=== PATIENT | male | born 1955 | race Caucasian/White ===

== ENCOUNTER 2021-07-01 16:10 | Emergency (ER) | payer MEDICARE, BC ==
[2021-07-01 16:20] VITALS: TEMP 97.7
--- NOTE | 2021-07-01 17:15 | CT ---
EXAMINATION TYPE: CT lumbar spine wo con DATE OF EXAM: 07/01/2021 COMPARISON: None HISTORY: Right leg weakness and numbness. CT DLP: 1478.6 mGycm Automated exposure control for dose reduction was used. Images obtained from the level of T12-S3 vertebra without contrast. Lumbar vertebrae are normal alignment. Disc spaces are fairly normal. Posterior elements are intact. Facet joints are intact. There is mild spurring of the endplates. There is no compression fracture. S acroiliac joints are intact. There is no evidence of spinal stenosis. No evidence of any significant lumbar disc herniation. IMPRESSION: Minor degenerative spurring in the lumbar spine. No fracture. No spinal stenosis.
--- NOTE | 2021-07-01 17:44 | ED ---
Extremity Problem HPI - General Chief complaint: Extremity Problem,Nontraumatic Stated complaint: R leg numbness Time Seen by Provider: 07/01/21 16:27 Source: patient, RN notes reviewed Mode of arrival: ambulatory Limitations: no limitations - History of Present Illness Initial comments: This a 66-year-old male presents emergency Department with chief complaint of right leg numb sensation. Patient states that started last night states that he is sitting down to get up felt there was just numb feeling. Patient states he gets morning noticed it felt that was difficult to walk on it. Patient states he has no associated weakness he states that it's numb feeling from his knee down. He has full range of motion no history of DVT denies any chest pain shortness breath no headache no trauma no fevers or chills no discoloration. Patient denies any bowel bladder incontinence or retention. - Related Data Home Medications Medication Instructions Recorded Confirmed Indocin (Unknown Dose) 1 tab PO DIRECTED PRN 09/11/14 09/11/14 Loratadine-Pseudoeph 10-240 mg 1 each PO DAILY 09/11/14 09/17/14 [Claritin-D 24 Hr] Previous Rx's Medication Instructions Recorded HYDROcodone/APAP 7.5-325MG [[place] 1 each PO Q4H PRN #60 tab 09/17/14 7.5] predniSONE 50 mg PO DAILY #4 tab 07/01/21 Allergies Allergy/AdvReac Type Severity Reaction Status Date / Time No Known Allergies Allergy Verified 07/01/21 18:10 Review of Systems ROS Statement: Those systems with pertinent positive or pertinent negative responses have been documented in the HPI. ROS Other: All systems not noted in ROS Statement are negative. Past Medical History Past Medical History: Sleep Apnea/CPAP/BIPAP Additional Past Medical History / Comment(s): GOUT, SLEEP APNEA-NO MACHINE, UMBILICAL HERNIA, ENVIRONMENTAL ALLERGIES. History of Any Multi-Drug Resistant Organisms: None Reported Past Surgical History: Appendectomy Additional Past Surgical History / Comment(s): CYST REMOVED ON TORSO, NASAL SURGERY, COLONOSCOPY. Past Anesthesia/Blood Transfusion Reactions: No Reported Reaction Past Psychological History: No Psychological Hx Reported Smoking Status: Never smoker Past Alcohol Use History: Occasional Past Drug Use History: Marijuana - Past Family History Father Family Medical History: Cancer Additional Family Medical History / Comment(s): PROSTATE CANCER. General Exam Limitations: no limitations General appearance: alert, in no apparent distress Head exam: Present: atraumatic, normocephalic, normal inspection Respiratory exam: Present: normal lung sounds bilaterally. Absent: respiratory distress, wheezes, rales, rhonchi, stridor Cardiovascular Exam: Present: regular rate, normal rhythm, normal heart sounds. Absent: systolic murmur, diastolic murmur, rubs, gallop, clicks Extremities exam: Present: normal inspection, full ROM, normal capillary refill, other (Lower extremity pulses equal bilaterally, cap refill less than 2 seconds there is equal and equal warmth patient does have full strength of lower extremity). Absent: tenderness, pedal edema, joint swelling, calf tenderness Back exam: Present: full ROM. Absent: tenderness, paraspinal tenderness, vertebral tenderness Neurological exam: Present: alert, oriented X3, CN II-XII intact, reflexes normal. Absent: motor sensory deficit Course Vital Signs 07/01/21 07/01/21 16:17 17:41 Temperature 97.7 F Pulse Rate 97 80 Respiratory 18 16 Rate Blood Pressure 156/86 190/102 O2 Sat by Pulse 98 97 Oximetry Medical Decision Making - Medical Decision Making CT of lumbar spine shows some mild degenerative changes, spurring noted Ultram is negative for acute DVT patient has good vascular flow patient has no associated weakness patient will be discharged and followed up with orthopedics for EMG. Disposition Clinical Impression: Right leg paresthesias, Lumbar radiculopathy Disposition: HOME SELF-CARE Condition: Stable Instructions (If sedation given, give patient instructions): Lumbar Radiculopathy (ED), Paresthesia (ED) Additional Instructions: Please return to the Emergency Department if symptoms worsen or any other concerns. Prescriptions: predniSONE 50 mg PO DAILY #4 tab Is patient prescribed a controlled substance at d/c from ED?: No Referrals: Vish Aguilar MD [STAFF PHYSICIAN] - 1-2 days Jose Angel Elliott MD [STAFF PHYSICIAN] - 1-2 days Time of Disposition: 18:10
--- NOTE | 2021-07-01 17:53 | US ---
EXAMINATION TYPE: US venous doppler duplex LE RT DATE OF EXAM: 07/01/2021 5:24 PM COMPARISON: NONE CLINICAL HISTORY: pain. numbness in right leg x 1 day, no h/o dvt SIDE PERFORMED: Right TECHNIQUE: The lower extremity deep venous system is examined utilizing real time linear array sonog devi with graded compression, doppler sonography and color-flow sonography. VESSELS IMAGED: Common Femoral Vein Deep Femoral Vein Greater Saphenous Vein * Femoral Vein Popliteal Vein Small Saphenous Vein * Proximal Calf Veins (* superficial vessels) Right Leg: Negative for DVT IMPRESSION: No evidence of deep vein thrombosis in the right leg.
[2021-07-01 18:16] VITALS: BP 140/93; PULSE 87; RESP 18
== END 2021-07-01 18:15 | disposition home or self-care (01) ==
LOC: EC 16:10
DX: M54.16 Radiculopathy, lumbar region (principal); R20.2 Paresthesia of skin; F12.90 Cannabis use, unspecified, uncomplicated
CPT/HCPCS: 72131; 99284

== ENCOUNTER 2021-08-14 07:50 | Day surgery (SDC) | payer BC, MEDICARE ==
[2021-08-12 14:59] VITALS: BMI 32.3
[2021-08-14 08:19] VITALS: TEMP 97
[2021-08-14] MEDS ORDERED: LACTATED RINGERS 1,000 ML IV ONE (08:27)
[2021-08-14] MEDS ORDERED: INSULIN ASPART (NovoLOG) 100 UNIT/ML VIAL SQ ONE (08:28)
[2021-08-14] MEDS ORDERED: LIDOCAINE 2% INJ 20 MG/ML (2 ML VIAL) ONE (08:46)
[2021-08-14] MEDS ORDERED: PROPOFOL 10 MG/ML 20 ML VIAL IV ONE (08:46)
--- NOTE | 2021-08-14 08:50 | P.GSHP ---
History of Present Illness H&P Date: 08/14/21 Chief Complaint: Screening colonoscopy This is a 66-year-old male who presents today for screening colonoscopy. Patient denies any significant GI complaints. Past Medical History Past Medical History: Diabetes Mellitus, Sleep Apnea/CPAP/BIPAP Additional Past Medical History / Comment(s): GOUT, SLEEP APNEA-NO MACHINE, ENVIRONMENTAL ALLERGIES. History of Any Multi-Drug Resistant Organisms: None Reported Past Surgical History: Appendectomy Additional Past Surgical History / Comment(s): CYST REMOVED ON ABDOMEN, NASAL SURGERY, COLONOSCOPY. Past Anesthesia/Blood Transfusion Reactions: No Reported Reaction Smoking Status: Never smoker - Past Family History Brother(s) Family Medical History: Cancer Additional Family Medical History / Comment(s): prostate Father Family Medical History: Cancer Additional Family Medical History / Comment(s): PROSTATE CANCER. Medications and Allergies Home Medications Medication Instructions Recorded Confirmed Type Ascorbic Acid [Vitamin C] 500 mg PO DAILY 07/01/21 08/14/21 History Atorvastatin [Lipitor] 20 mg PO HS 07/01/21 08/14/21 History Cholecalciferol [Vitamin D3 (25 25 mcg PO DAILY 07/01/21 08/14/21 History Mcg = 1000 Iu)] Loratadine [Claritin] 10 mg PO DAILY 07/01/21 08/14/21 History Minocycline HCl [Minocin] 100 mg PO DAILY 07/01/21 08/14/21 History metFORMIN HCL 500 mg PO BID-W/MEALS 07/01/21 08/14/21 History Allergies Allergy/AdvReac Type Severity Reaction Status Date / Time No Known Allergies Allergy Verified 08/14/21 08:11 Surgical - Exam Vital Signs Temp Pulse Resp BP Pulse Ox 97.0 F L 90 16 159/99 96 08/14/21 08:18 08/14/21 08:18 08/14/21 08:18 08/14/21 08:18 08/14/21 08:18 - General well developed, well nourished, no distress - Eyes PERRL - ENT normal pinna - Neck no masses - Respiratory normal expansion - Cardiovascular Rhythm: regular - Abdomen Abdomen: soft, non tender Assessment and Plan Assessment: We'll perform screening colonoscopy.
[2021-08-14 08:51] LABS: Glucose,Whole Blood 311 mg/dL (75-99)
--- NOTE | 2021-08-14 09:06 | P.OP ---
Date of Procedure: 08/14/21 Preoperative Diagnosis: Screening colonoscopy Postoperative Diagnosis: Sigmoid colon polyp Mild diverticulosis Procedure(s) Performed: colonoscopy Anesthesia: MAC Surgeon: Florentino Cedillo Pathology: other (Sigmoid colon polyp) Condition: stable Disposition: PACU Description of Procedure: The patient's placed on the endoscopy table in the lateral position. He received IV sedation. Digital rectal exam was performed which revealed no abnormalities. The flexible colonoscope was then placed patient anus and passed throughout the entire colon. The ileocecal valve was visualized. The cecum, ascending and transverse colon appeared normal. In the descending and; was a few scattered diverticuli. In the sigmoid colon there was a polyp seen. This removed with the snare. Scope was brought back the rectum this appeared normal. Scope withdrawn for patient.
[2021-08-14 09:15] LABS: Glucose,Whole Blood 323 mg/dL (75-99)
[2021-08-14 09:37] VITALS: RESP 17
[2021-08-14] MEDS ORDERED: LACTATED RINGERS 1,000 ML IV SCH (09:43)
[2021-08-14] MEDS ORDERED: LABETALOL SYRINGE 5 MG/ML IVP ONE (09:45)
[2021-08-14] MEDS ORDERED: hydrALAZINE HCL 20 MG/ML 1 ML VIAL ONE (10:50)
[2021-08-14] MEDS ORDERED: hydrALAZINE HCL 20 MG/ML 1 ML VIAL IV ONE (10:51)
[2021-08-14 10:54] VITALS: BP 191/119; PULSE 81
[2021-08-14 10:56] LABS: Glucose,Whole Blood 276 mg/dL (75-99)
== END 2021-08-14 11:30 | disposition home or self-care (01) ==
LOC: ORWHC2ENDO 07:50
PROVIDERS: ATTEND Surgery
DX: Z12.11 Encounter for screening for malignant neoplasm of colon (principal); K57.90 Diverticulosis of intestine, part unspecified, without perforation or abscess without bleeding; D12.5 Benign neoplasm of sigmoid colon; E11.9 Type 2 diabetes mellitus without complications; G47.30 Sleep apnea, unspecified; Z79.84 Long term (current) use of oral hypoglycemic drugs
CPT/HCPCS: 45385; 88305; J0360; J2704; J2001

== ENCOUNTER 2022-09-01 02:51 | Inpatient (IN) | payer MEDICARE ==
[2022-09-01] MEDS ORDERED: HEPARIN SODIUM 1,000 UN/ML (10ML VL) IV ONE (02:56)
[2022-09-01] MEDS ORDERED: NITROGLYCERIN SL TABS 0.4 MG TAB SUBLINGUAL PRN ×2 (02:56→04:20)
[2022-09-01 02:58] LABS: Glucose,Whole Blood 183 mg/dL (70-110)
[2022-09-01] MEDS ORDERED: fentaNYL (PF) 50 MCG/ML 2 ML AMP ONE (03:13)
[2022-09-01] MEDS ORDERED: HEPARIN SODIUM 1,000 UN/ML (10ML VL) ONE (03:13)
[2022-09-01] MEDS ORDERED: VERAPAMIL 2.5 MG/ML 2 ML AMP ONE (03:13)
[2022-09-01] MEDS ORDERED: NALOXONE 0.4 MG/ML 1 ML VIAL IV PRN (03:20)
[2022-09-01] MEDS ORDERED: LIDOCAINE 1% INJ 10MG/ML (5 ML VIAL-PF) SQ ONE (03:25)
[2022-09-01] MEDS ORDERED: VERAPAMIL SYRINGE (5 MG/10 ML) INTRAARTER ONE (03:26)
[2022-09-01] MEDS ORDERED: fentaNYL (PF) 50 MCG/ML 2 ML AMP IVP ONE (03:28)
[2022-09-01 03:29] LABS: ALT 34 U/L (4-49); AST 26 U/L (17-59); African American GFR (CKD) >90 (>60 ml/min/1.73 sqM); Albumin 4.4 g/dL (3.5-5.0); Alkaline Phosphatase 123 U/L (38-126); Anion Gap 16 mmol/L; Blood Urea Nitrogen 11 mg/dL (9-20); Calcium 9.3 mg/dL (8.4-10.2); Carbon Dioxide 20 mmol/L (22-30); Chloride 106 mmol/L (98-107); Glucose 194 mg/dL (74-99); Non-African American GFR(CKD) >90 (>60 ml/min/1.73 sqM); Potassium 3.7 mmol/L (3.5-5.1); Sodium 142 mmol/L (137-145); Total Bilirubin 0.5 mg/dL (0.2-1.3); Total Protein 7.8 g/dL (6.3-8.2)
[2022-09-01] MEDS ORDERED: SODIUM CHLORIDE 0.9% 1,000 ML IV ONE (03:33)
--- NOTE | 2022-09-01 03:36 | ED ---
General Adult HPI - General Chief complaint: Chest Pain Stated complaint: Stemi Time Seen by Provider: 09/01/22 02:56 Source: patient, EMS Mode of arrival: EMS Limitations: no limitations - History of Present Illness Initial comments: This is a 67-year-old male with a past medical history including hypertension presents emergency department via EMS for chest pain that began 20 minutes prior to arrival. The patient stated that this woke him up out of sleep and was a crushing sensation in the center of his chest. The patient was given 4 aspirin by EMS and stated that the pain did improve. EMS did provide any during transport but did show a STEMI. A STEMI was contacted prior to arrival and on arrival, the patient stated his pain was improved however did state that he was treating alcohol this evening. The patient denied any other acute pain or complaints at this time. The patient did state that he had a small episode of chest pain earlier in the day but had spontaneously resolved. - Related Data Home Medications Medication Instructions Recorded Confirmed Ascorbic Acid [Vitamin C] 500 mg PO DAILY 07/01/21 08/14/21 Atorvastatin [Lipitor] 20 mg PO HS 07/01/21 08/14/21 Cholecalciferol [Vitamin D3 (25 25 mcg PO DAILY 07/01/21 08/14/21 Mcg = 1000 Iu)] Loratadine [Claritin] 10 mg PO DAILY 07/01/21 08/14/21 Minocycline HCl [Minocin] 100 mg PO DAILY 07/01/21 08/14/21 metFORMIN HCL 500 mg PO BID-W/MEALS 07/01/21 08/14/21 Allergies Allergy/AdvReac Type Severity Reaction Status Date / Time No Known Allergies Allergy Verified 08/14/21 08:11 Review of Systems ROS Statement: Those systems with pertinent positive or pertinent negative responses have been documented in the HPI. ROS Other: All systems not noted in ROS Statement are negative. Past Medical History Past Medical History: Diabetes Mellitus, Sleep Apnea/CPAP/BIPAP Additional Past Medical History / Comment(s): GOUT, SLEEP APNEA-NO MACHINE, ENVIRONMENTAL ALLERGIES. History of Any Multi-Drug Resistant Organisms: None Reported Past Surgical History: Appendectomy Additional Past Surgical History / Comment(s): CYST REMOVED ON ABDOMEN, NASAL SURGERY, COLONOSCOPY. Past Anesthesia/Blood Transfusion Reactions: No Reported Reaction Past Psychological History: No Psychological Hx Reported Smoking Status: Never smoker Past Alcohol Use History: None Reported Past Drug Use History: None Reported - Past Family History Brother(s) Family Medical History: Cancer Additional Family Medical History / Comment(s): prostate Father Family Medical History: Cancer Additional Family Medical History / Comment(s): PROSTATE CANCER. General Exam Limitations: no limitations General appearance: alert, in no apparent distress Head exam: Present: atraumatic, normocephalic, normal inspection Eye exam: Present: normal appearance, PERRL Pupils: Present: normal accommodation ENT exam: Present: normal exam, normal oropharynx Neck exam: Present: normal inspection, full ROM Respiratory exam: Present: normal lung sounds bilaterally Cardiovascular Exam: Present: regular rate, normal rhythm, normal heart sounds GI/Abdominal exam: Present: soft, normal bowel sounds Extremities exam: Present: normal inspection, full ROM Back exam: Present: normal inspection, full ROM Neurological exam: Present: alert, oriented X3, CN II-XII intact Psychiatric exam: Present: normal affect, normal mood Skin exam: Present: warm, dry Course Vital Signs 09/01/22 09/01/22 09/01/22 02:52 02:56 03:02 Temperature 97.7 F Pulse Rate 109 H 79 Pulse Rate [ 82 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 This EKG showed a normal sinus rhythm with a first-degree AV block however there was significant ST segment elevations in lead V1, V2, V3, V4, V5 and V6 with additional ST segment elevations in lead 3 and aVF. While under close monitoring observation, the patient did have an episode of V. fib arrest and was shocked once with a repeat EKG obtained status post ROSC and was interpreted by myself with similar findings as the initial EKG. 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 sent in by a medical professional or institution (, PA, PATIENT SAFETY TECH, urgent care, hospital, or snf...) When possible be specific @ -No Did you speak to anyone other than the patient for history (EMS, parent, family, police, friend...)? What history was obtained from this source @ -Yes, EMS who stated that the patient was given 4 chewed aspirin and stated that his pain was improved. Did you review nursing and triage notes (agree or disagree)? Why? @ -I reviewed and agree with nursing and triage notes Were old charts reviewed (outside hosp., previous admission, EMS record, old EKG, old radiological studies, urgent care reports/EKG's, snf records)? Report findings @ -No old charts were reviewed Differential Diagnosis (chest pain, altered mental status, abdominal pain women, abdominal pain men, vaginal bleeding, weakness, fever, dyspnea, syncope, headache, dizziness, GI bleed, back pain, seizure, CVA, palpatations, mental health)? @ -STEMI, pneumothorax, pneumonia EKG interpreted by me (3pts min.). @ -As above X-rays interpreted by me (1pt min.). 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 CT interpreted by me (1pt min.). @ -None done U/S interpreted by me (1pt. min.). @ -None done What testing was considered but not performed or refused? (CT, X-rays, U/S, labs)? Why? @ -None What meds were considered but not given or refused? Why? @ -None Did you discuss the management of the patient with other professionals (professionals i.e. , PA, PATIENT SAFETY TECH, lab, RT, psych nurse, social worker assistant, district branch manager, teacher, commissioned police officer, casework specialist)? Give summary @ -Yes, Dr. Martínez was contacted per STEMI call and did present to the bedside evaluating the patient and take the patient to the cardiac Dump Truck Driver. The patient's primary care physician was being covered by Dr. Flor who was contacted regarding patient admission. Was smoking cessation discussed for >3mins.? @ -No Was critical care preformed (if so, how long)? @ -Yes, see above Were there social determinants of health that impacted care today? How? (Homelessness, low income, unemployed, alcoholism, drug addiction, transportation, low edu. Level, literacy, decrease access to med. care, fdc, rehab)? @ -No Was there de-escalation of care discussed even if they declined (Discuss DNR or withdrawal of care, Hospice)? DNR status @ -No What co-morbidities impacted this encounter? (DM, HTN, Smoking, COPD, CAD, Cancer, CVA, ARF, Chemo, Hep., AIDS, mental health diagnosis, sleep apnea, morbid obesity)? @ -Hypertension Was patient admitted / discharged? Hospital course, mention meds given and route, prescriptions, significant lab abnormalities, going to OR and other pertinent info. @ -The patient was seen and evaluated. Prior to arrival, EMS did send a EKG and I did call the code STEMI 15 minutes prior to arrival the emergency department. On arrival, the patient was stable without any acute complaints. The patient did state that his chest pain improved however repeat EKG initially on arrival showed continued significant ST segment elevations. Code STEMI workup was obtained. I did speak to Dr. Martínez who came to the bedside to evaluate the patient and agreed to take the patient to the cardiac catheterization lab. While observing the patient and working up the patient after initial arrival, the patient did have a brief episode of V. fib arrest that required a defibrillating shock 150 J. The patient immediately woke up and did not complain of any further pain or distress, asking what I just happened. The patient remained stable and was given a bolus of heparin. The patient was emergently sent to the cardiac catheterization lab for continued treatment. The patient's primary care physician agreed to set the patient for admission and supervisor locomotive PATIENT SAFETY TECH was also contacted and accepted the patient for admission. Undiagnosed new problem with uncertain prognosis? @ -No Drug Therapy requiring intensive monitoring for toxicity (Heparin, Nitro, Insulin, Cardizem)? @ -No Were any procedures done? @ -No Diagnosis/symptom? @ -STEMI Acute, or Chronic, or Acute on Chronic? @ -Acute Uncomplicated (without systemic symptoms) or Complicated (systemic symptoms)? @ -Complicated Side effects of treatment? @ -No Exacerbation, Progression, or Severe Exacerbation? @ -No Poses a threat to life or bodily function? How? (Chest pain, [place], MA, pneumonia, PE, COPD, DKA, ARF, appy, cholecystitis, CVA, Diverticulitis, Homicidal, Suicidal, threat to staff... and all critical care pts) @ -Yes, STEMI can lead to continued arrhythmia and possible . - Lab Data Lab Results 09/01/22 Range/Units 02:57 POC Glucose (mg/dL) 183 H (70-110) mg/dL POC Glu Sheep Or Calf Grader ID Lawrence Gillian Critical Care Time Critical Care Time: Yes Total Critical Care Time: 31 Disposition Clinical Impression: ST elevation myocardial infarction (STEMI) Disposition: ADMITTED IP TO THIS HOSP Condition: Serious Is patient prescribed a controlled substance at d/c from ED?: No Referrals: Jose Angel Elliott MD [Primary Care Provider] - 1-2 days Time of Disposition: 03:20 Decision to Admit Reason: Admit from EC Decision Date: 09/01/22 Decision Time: 03:20
[2022-09-01] MEDS ORDERED: TICAGRELOR 90 MG TAB ONE (03:37)
[2022-09-01] MEDS: HEPARIN SODIUM 1,000 UN/ML (10ML VL) IV ONE ×2 (03:37→04:13)
[2022-09-01] MEDS ORDERED: TICAGRELOR 90 MG TAB PO ONE (03:39)
[2022-09-01 03:40] LABS: Basophils # (A) 0.1 k/uL (0-0.2); Basophils % (A) 1 %; Eosinophils # (A) 0.2 k/uL (0-0.7); Eosinophils % (A) 2 %; HCT 47.5 % (39.0-53.0); HGB 15.4 gm/dL (13.0-17.5); Lymphocytes # (A) 4.6 k/uL (1.0-4.8); Lymphocytes % (A) 47 %; MCH 29.2 pg (25.0-35.0); MCHC 32.4 g/dL (31.0-37.0); MCV 90.2 fL (80.0-100.0); Mean Platelet Volume 8.6; Monocytes # (A) 0.4 k/uL (0-1.0); Monocytes % (A) 4 %; Neutrophils # (A) 4.3 k/uL (1.3-7.7); Neutrophils % (A) 44 %; Platelet Count 267 k/uL (150-450); RBC 5.27 m/uL (4.30-5.90); RDW 13.1 % (11.5-15.5); WBC 9.8 k/uL (3.8-10.6)
[2022-09-01] MEDS ORDERED: IOPAMIDOL-370 100ML BTL INJ ONE ×2 (03:42→04:04)
[2022-09-01 03:43] LABS: INR 0.9 (<1.2); Partial Thromboplastin Time 53.3 sec (22.0-30.0); Prothrombin Time 9.9 sec (9.0-12.0)
--- NOTE | 2022-09-01 04:05 | XR ---
EXAM: XR Chest, 1 View CLINICAL HISTORY: ITS.REASON XR Reason: chest pain TECHNIQUE: Frontal view of the chest. COMPARISON: No relevant prior studies available. FINDINGS: Lungs: Streaky perihilar and retrocardiac subsegmental opacities. Slightly hazy ill-defined central bronchovascular markings. Pleural space: Unremarkable. No pneumothorax. Heart: Unremarkable. No cardiomegaly. Mediastinum: Unremarkable. Bones/joints: Unremarkable. IMPRESSION: Subsegmental atelectasis and central pulmonary edema versus developing unusual pneumonia/bronchitis changes
[2022-09-01] MEDS ORDERED: ZOLPIDEM 5 MG TAB PO PRN (04:20)
[2022-09-01] MEDS ORDERED: RX INFO: IV CONTRAST WAS GIVEN 1 EACH MISC MISCELLANE PRN (04:20)
[2022-09-01] MEDS ORDERED: ATROPINE SULFATE 0.1 MG/ML 10ML SYRINGE IV PRN (04:20)
[2022-09-01] MEDS ORDERED: MAG HYDROX/AL HYDROX/SIMETH 30 ML CUP PO PRN (04:20)
--- NOTE | 2022-09-01 04:28 | P.CRDCN ---
History of Present Illness Consult date: 09/01/22 History of present illness: History of Present Illness: The patient is a 67-year-old male with known history of hyperlipidemia, no history of smoking who presented with an acute onset chest discomfort and presented with evidence of anterior wall myocardial infarction. The patient had mild discomfort earlier during the day that resolved but subsequently had discomfort that woke him up from sleep and presented to the ER. In the emergency room he had an episode of ventricular tachycardia requiring cardioversion. He has no prior cardiac history, he is usually active physically without any difficulties. He denies any peripheral edema, PND or orthopnea. He denies any dizziness, palpitations or syncope. Medications: Metformin 500 mg twice a day, Lipitor 20 made him daily, vitamin C Review of Systems: Respiratory: No history of asthma, bronchitis or recent cough. GI: No nausea or vomiting . No history of peptic ulcer disease. No recent GI bleed. : No hematuria or dysuria. Nervous System: No stroke or seizure. Physical Examination: 67-year-old male, alert and oriented in moderate discomfort,Blood pressure 150/90, Heart rate 80 Head: Normocephalic. Eyes: Sclerae nonicteric. Neck: Good carotid upstroke, no bruit, no jugular venous distention. Lungs: Clear to auscultation. Heart: Regular rate and rhythm, S1-S2, no S3, no rub. No murmur. Abdomen: Soft nontender, positive bowel sounds no organomegaly. Extremities: No edema, intact distal pulses. Labs: Hemoglobin 15.4, BUN 11, creatinine 0.77. Potassium 3.7. Troponin 0.113. Chest x-ray with atelectasis EKG: Normal sinus rhythm with ST elevation in the anterior leads as well as the inferior leads consistent with anterior wall myocardial infarction Impression: 1. Acute anterior wall myocardial infarction 2. History of hyperlipidemia 3. History of diabetes 4. Ventricle tachycardia on presentation Plan: 1. Proceed with emergency cardiac catheterization 2. The procedure as well as the risks and the complications were discussed with the patient who was in agreement and understanding 3. Obtain an echocardiogram with Doppler 4. Depending on his progress further recommendations will be made 5. Thank you for this consult we will follow with you. Past Medical History Past Medical History: Diabetes Mellitus, Sleep Apnea/CPAP/BIPAP Additional Past Medical History / Comment(s): GOUT, SLEEP APNEA-NO MACHINE, ENVIRONMENTAL ALLERGIES. History of Any Multi-Drug Resistant Organisms: None Reported Past Surgical History: Appendectomy Additional Past Surgical History / Comment(s): CYST REMOVED ON ABDOMEN, NASAL SURGERY, COLONOSCOPY. Past Anesthesia/Blood Transfusion Reactions: No Reported Reaction Past Psychological History: No Psychological Hx Reported Smoking Status: Never smoker Past Alcohol Use History: None Reported Past Drug Use History: None Reported - Past Family History Brother(s) Family Medical History: Cancer Additional Family Medical History / Comment(s): prostate Father Family Medical History: Cancer Additional Family Medical History / Comment(s): PROSTATE CANCER. Medications and Allergies Home Medications Medication Instructions Recorded Confirmed Type Ascorbic Acid [Vitamin C] 500 mg PO DAILY 07/01/21 08/14/21 History Atorvastatin [Lipitor] 20 mg PO HS 07/01/21 08/14/21 History Cholecalciferol [Vitamin D3 (25 25 mcg PO DAILY 07/01/21 08/14/21 History Mcg = 1000 Iu)] Loratadine [Claritin] 10 mg PO DAILY 07/01/21 08/14/21 History Minocycline HCl [Minocin] 100 mg PO DAILY 07/01/21 08/14/21 History metFORMIN HCL 500 mg PO BID-W/MEALS 07/01/21 08/14/21 History Allergies Allergy/AdvReac Type Severity Reaction Status Date / Time No Known Allergies Allergy Verified 08/14/21 08:11 Physical Exam Vitals: Vital Signs Temp Pulse Pulse Resp BP Pulse Ox 09/01/22 03:02 79 20 174/116 92 L 09/01/22 02:56 82 09/01/22 02:52 97.7 F 109 H 20 151/102 95 Intake and Output 08/31/22 08/31/22 09/01/22 14:59 22:59 06:59 Intake Total 75 Balance 75 Intake: IV 75 Other: Weight 108.862 kg Results 09/01/22 03:02 09/01/22 03:02 Cardiac Enzymes 09/01/22 09/01/22 Range/Units 03:02 03:02 AST 26 (17-59) U/L Troponin I 0.113 H* (0.000-0.034) ng/mL Coagulation 09/01/22 Range/Units 03:02 PT 9.9 (9.0-12.0) sec APTT 53.3 H (22.0-30.0) sec CBC 09/01/22 Range/Units 03:02 WBC 9.8 (3.8-10.6) k/uL RBC 5.27 (4.30-5.90) m/uL Hgb 15.4 (13.0-17.5) gm/dL Hct 47.5 (39.0-53.0) % Plt Count 267 (150-450) k/uL Comprehensive Metabolic Panel 09/01/22 Range/Units 03:02 Sodium 142 (137-145) mmol/L Potassium 3.7 (3.5-5.1) mmol/L Chloride 106 (98-107) mmol/L Carbon Dioxide 20 L (22-30) mmol/L BUN 11 (9-20) mg/dL Creatinine 0.77 (0.66-1.25) mg/dL Glucose 194 H (74-99) mg/dL Calcium 9.3 (8.4-10.2) mg/dL AST 26 (17-59) U/L ALT 34 (4-49) U/L Alkaline Phosphatase 123 (38-126) U/L Total Protein 7.8 (6.3-8.2) g/dL Albumin 4.4 (3.5-5.0) g/dL Current Medications Generic Name Dose Route Start Last Admin Trade Name Freq PRN Reason Stop Dose Admin Al Hydroxide/Mg Hydroxide 30 ml 09/01/22 04:20 Mag Hydrox/Al Hydrox/Simeth 30 Ml Cup PO Q4HR PRN Heartburn Aspirin 81 mg 09/01/22 09:00 Aspirin 81 Mg PO DAILY [facility] Atorvastatin Calcium 80 mg 09/01/22 21:00 Atorvastatin 80 Mg Tab PO HS [facility] Atropine Sulfate 0.5 mg 09/01/22 04:20 Atropine Sulfate 0.1 Mg/Ml 10ml Syringe IV ONCE PRN Symptomatic Bradycardia Sodium Chloride 1,000 ml/ IV 1,000 mls @ 108.862 mls/hr 09/01/22 04:30 Solution IV 09/01/22 08:31 .Q9H12M BEENA 1 ML/KG/HR Lisinopril 5 mg 09/01/22 09:00 Lisinopril 2.5 Mg Tab PO BID [facility] Metoprolol Tartrate 25 mg 09/01/22 09:00 Metoprolol Tartrate 25 Mg Tab PO BID [facility] Miscellaneous Information 1 each 09/01/22 04:20 Rx Info: Iv Contrast Was Given 1 Each Misc MISCELLANE 09/03/22 04:20 DAILY PRN Per Protocol Naloxone HCl 0.2 mg 09/01/22 03:20 Naloxone 0.4 Mg/Ml 1 Ml Vial IV Q2M PRN Opioid Reversal Nitroglycerin 0.4 mg 09/01/22 02:56 Nitroglycerin Sl Tabs 0.4 Mg Tab SUBLINGUAL Q5M PRN Chest Pain Nitroglycerin 0.4 mg 09/01/22 04:20 Nitroglycerin Sl Tabs 0.4 Mg Tab SUBLINGUAL Q5M PRN Chest Pain Spironolactone 25 mg 09/01/22 09:00 Spironolactone 25 Mg Tab PO DAILY [facility] Ticagrelor 90 mg 09/01/22 09:00 Ticagrelor 90 Mg Tab PO BID [facility] Protocol Zolpidem Tartrate 5 mg 09/01/22 04:20 Zolpidem 5 Mg Tab PO HS PRN Insomnia Intake and Output 08/31/22 08/31/22 09/01/22 14:59 22:59 06:59 Intake Total 75 Balance 75 Intake: IV 75 Other: Weight 108.862 kg Patient Weight 09/01/22 06:59 Weight 108.862 kg 09/01/22 03:02 09/01/22 03:02
[2022-09-01] MEDS ORDERED: SODIUM CHLORIDE 0.9% 1,000 ML in EMPTY BAG 1 BAG IV SCH (04:30)
[2022-09-01 04:31] LABS: Glucose,Whole Blood 166 mg/dL (70-110)
--- NOTE | 2022-09-01 04:35 | P.CARDCATH ---
Date of Procedure: 09/01/22 Description of Procedure: Cardiac Catheterization: The patient is a 67 year old male who presented with an acute anterior wall myocardial infarction. Recommendations were made regarding cardiac catheterization, the risks and the complications were discussed with the patient who is in full understanding and agreement. Procedure Description: Patient was brought to outside laborer in fasting semi-sedated state after receiving Fentanyl and Benadryl achieiving moderate conscious sedated state. Using Xylocaine Anesthesia and Seldinger technique, a 6-Kosovan sheath was introduced in the right radial artery . Subsequently, selective coronary angiography was performed using a 5-Kosovan 3.5 bend right Louie catheter. Attempt to cannulate the left main using a 6- Kosovan 3.75 EBU guiding catheter were unsuccessful, that catheter was exchanged to a 6-Kosovan 4.0 EBU guiding catheter. After obtaining images of the left system and performing angioplasty and stenting images of the right coronary artery were performed. Multiple views of the coronary artery including hemiaxial views were obtained. The 5-Kosovan pigtail catheter was used to cross the aortic valve and LVEDP was calculated. PCI: Using the 4.0 EBU guiding catheter and after cannulating the left main a 0.014 BMW J-wire was advanced and positioned in the distal LAD, subsequently a second 0.014 BMW J wire was positioned in the diagonal branch. A 2.5 x 12 mm Treck was advanced into inflation at 8 kunal were done. Subsequently a 3.0 x 28 mm Xience ricardo point stent was advanced and deployed at 16 kunal. After removing the balloon a [employer] intravascular ultrasound catheter was advanced and imaging was performed. After removing the catheter 4.0 x 15 mm NC Treck balloon was advanced and one inflation in the proximal segment at 10 kunal was done. Following that the wire was withdrawn back and again a catheter, images were obtained and revealed stable successful stenting. Following that, catheter and sheath were removed. Hemostasis was obtained with deployment of TR band . There was no immediate complication. Patient was returned to room in stable condition. Of note, the patient received a total of 6000 units of intravenous heparin as well as intra-arterial verapamil. His ACT was followed. He received an oral loading dose of Brilinta. Addendum the procedure his chest discomfort resolved and there was improvement in his EKG changes. Findings: Left main: This is a large size vessel, bifurcating into LAD and left circum flex, the left main has no high-grade stenosis LAD: This vessel is subtotally occluded proximally with a 99% stenosis and evidence of intracoronary thrombus with slow flow into LAD and diagonal branch Left circumflex: This is a large nondominant vessel giving rise to 2 obtuse margin branch have no evidence of high-grade stenosis RCA: This is a large dominant vessel, bifurcating distally to PDA and PLV, EDTA reaches to the inferoapical wall. The RCA has no evidence of obstructive disease Left Ventriculogram: Not performed Hemodynamics: There was no gradient across the aortic valve, LVEDP was 8-10 mmHg Conclusion: 1. Subtotally occluded proximal LAD 2. No evidence of obstructive disease in the RCA and left circumflex 3. Successful stenting of the proximal LAD with reduction of stenosis from 99% to 0% with intravascular ultrasound imaging 4. Right dominance Recommendations: The patient will continue on aspirin and Brilinta without any interruption for one year in addition to aggressive coronary risks modifications. The findings and the recommendations were discussed with the patient and the family and they were in full understanding and agreement. Duration of sedation is 46 minutes.
[2022-09-01] MEDS ORDERED: DEXTROSE 50% SYRINGE 50 ML IVP PRN ×2 (05:17)
--- NOTE | 2022-09-01 05:17 | P.CNPUL ---
History of Present Illness Consult date: 09/01/22 Requesting physician: Elmo Shahid Reason for consult: other (ICU management) Chief complaint: Chest pain History of present illness: I am seeing this patient in new consultation today 09/01/2022 in the intensive care unit for acute ST elevation myocardial infarction post successful stenting of LAD. Patient is a 67-year-old white male with past medical history significant for hypertension, hyperlipidemia, type 2 diabetes mellitus. No smoking history. Yesterday morning, patient reportedly had a transient self resolving episode of chest pain while at work. He went to bed last night, and then was awoken early this morning, by acute substernal crushing chest pain that was non-radiating. This was associated with some nausea. The patient immediately called EMS, and was transferred to the emergency room. On arrival to the emergency room a STEMI alert was activated. The patient did have an episode of ventricular tachycardia without a pulse, and had a brief resuscitation. ROSC was achieved after the first defibrillation attempt. Patient did not require intubation or vasopressors. The patient was then transferred to the Cardiac Insect Control Aide, and had a stent to the proximal left anterior descending artery. The patient is currently sitting up in bed, on 4 L nasal cannula, in no acute distress. He denies any further chest pain. He denies any shortness of breath, lower extremity edema, paroxysmal nocturnal dyspnea, orthopnea. He denies any lightheadedness, syncopal episodes, palpitations. There is a right radial TR band in place without hemotoma. Post resuscitation chest x-ray, shows subsegmental atelectasis and central pulmonary edema. CBC was unremarkable. BMP shows a sodium 142, potassium 3.7, chloride 106, serum beta bicarb 20, BUN 11, creatinine 2.77, glucose 194. Initial troponin was elevated at 0.113. Patient has been started on Brilinta. No further ventricular arrhythmias noted. Repeat ECG postoperatively shows normal sinus rhythm with a first-degree AV block, and improvement in ST elevation. Patient is hypertensive, but otherwise, hemodynamically stable at the moment. Review of Systems REVIEW OF SYSTEMS: CONSTITUTIONAL: Denies any recent significant weight loss or weight gain. EYES: Denies change in vision. EARS, NOSE, MOUTH, THROAT: Denies headaches, denies sore throat. CARDIOVASCULAR: See HPI. RESPIRATORY: Denies shortness of breath, cough, congestion or hemoptysis. GASTROINTESTINAL: Denies change in appetite, abdominal pain, nausea and vomiting, or diarrhea GENITOURINARY: Denies hematuria, denies infections. MUSKULOSKELETAL: Denies pain, denies swelling. INTEGUMENTARY: Denies rash, denies eczema. NEUROLOGICAL: Denies recent memory loss, no recent seizure activity. PSYCHIATRIC: Denies anxiety, denies depression. HEMATOLOGIC/LYMPHATIC: Denies anemia, denies enlarged lymph node Past Medical History Past Medical History: Diabetes Mellitus, Sleep Apnea/CPAP/BIPAP Additional Past Medical History / Comment(s): GOUT, SLEEP APNEA-NO MACHINE, ENVIRONMENTAL ALLERGIES. History of Any Multi-Drug Resistant Organisms: None Reported Past Surgical History: Appendectomy Additional Past Surgical History / Comment(s): CYST REMOVED ON ABDOMEN, NASAL SURGERY, COLONOSCOPY. Past Anesthesia/Blood Transfusion Reactions: No Reported Reaction Past Psychological History: No Psychological Hx Reported Smoking Status: Never smoker Past Alcohol Use History: None Reported Past Drug Use History: None Reported - Past Family History Brother(s) Family Medical History: Cancer Additional Family Medical History / Comment(s): prostate Father Family Medical History: Cancer Additional Family Medical History / Comment(s): PROSTATE CANCER. Medications and Allergies Home Medications Medication Instructions Recorded Confirmed Type Ascorbic Acid [Vitamin C] 500 mg PO DAILY 07/01/21 08/14/21 History Atorvastatin [Lipitor] 20 mg PO HS 07/01/21 08/14/21 History Cholecalciferol [Vitamin D3 (25 25 mcg PO DAILY 07/01/21 08/14/21 History Mcg = 1000 Iu)] Loratadine [Claritin] 10 mg PO DAILY 07/01/21 08/14/21 History Minocycline HCl [Minocin] 100 mg PO DAILY 07/01/21 08/14/21 History metFORMIN HCL 500 mg PO BID-W/MEALS 07/01/21 08/14/21 History Allergies Allergy/AdvReac Type Severity Reaction Status Date / Time No Known Allergies Allergy Verified 08/14/21 08:11 Physical Exam Vitals: Vital Signs Temp Pulse Pulse Resp BP Pulse Ox 09/01/22 03:02 79 20 174/116 92 L 09/01/22 02:56 82 09/01/22 02:52 97.7 F 109 H 20 151/102 95 Intake and Output 08/31/22 08/31/22 09/01/22 14:59 22:59 06:59 Intake Total 75 Balance 75 Intake: IV 75 Other: Weight 108.862 kg GENERAL EXAM: Alert, 67-year-old white male , comfortable in no apparent distress. HEAD: Normocephalic and atraumatic EYES: Normal reaction of pupils, equal size. NOSE: Clear with pink turbinates. THROAT: No erythema or exudates. NECK: No masses, no JVD. CHEST: No chest wall deformity. LUNGS: Equal air entry with no crackles, wheeze, rhonchi or dullness. On 2 L nasal cannula. No conversational dyspnea or accessory muscle use.. CVS: S1 and S2 normal with no audible murmur, regular rhythm. No extra heart sounds ABDOMEN: No hepatosplenomegaly, active bowel sounds, no guarding or rigidity. SPINE: No scoliosis or deformity SKIN: No rashes CENTRAL NERVOUS SYSTEM: No focal deficits, tone is normal in all 4 extremities. EXTREMITIES: There is no peripheral edema, clubbing, or cyanosis. Peripheral pulses are intact. There is a right TR band in place Results - Laboratory Findings CBC and BMP: 09/01/22 03:02 09/01/22 03:02 PT/INR, D-dimer PT 9.9 sec (9.0-12.0) 09/01/22 03:02 INR 0.9 (<1.2) 09/01/22 03:02 Abnormal lab findings: Abnormal Labs 09/01/22 09/01/22 09/01/22 02:57 03:02 03:02 APTT 53.3 H Carbon Dioxide 20 L Glucose 194 H POC Glucose (mg/dL) 183 H Troponin I 09/01/22 09/01/22 03:02 04:30 APTT Carbon Dioxide Glucose POC Glucose (mg/dL) 166 H Troponin I 0.113 H* - Diagnostic Findings Chest x-ray: image reviewed Assessment and Plan Assessment: Acute ST elevation myocardial infarction status post successful stenting to the proximal left anterior descending artery. Cardiac arrest, presenting rhythm was ventricular tachycardia without a pulse, down time was brief, and only required one defibrillation attempt. Patient did not require intubation or vasopressors. Acute hypoxemic respiratory failure, currently on 4 L nasal cannula. Post resuscitation chest x-ray shows slight segmental atelectasis and central pulmonary edema. No pneumothorax Diabetes mellitus type 2, [id number] Essential hypertension Hyperlipidemia Obesity, with a BMI of 32 Plan: Patient's medications, labs, chest x-ray reviewed Continue supplemental oxygen to maintain oxygen saturation 92% or greater Repeat ECG Trend troponins Obtain transthoracic echocardiogram in the morning Patient was started on Brilinta, lisinopril, metoprolol, and spironolactone per cardiology Prognosis is guarded, and the patient will be monitored in the intensive care unit at least overnight I have personally seen and examined the patient, performed the documentation and the assessment and plan as written. Number of minutes spent on the visit:20 Time with Patient: Greater than 30
[2022-09-01 06:41] LABS: Glucose,Whole Blood 140 mg/dL (70-110)
[2022-09-01] MEDS: INSULIN ASPART (NovoLOG) 100 UNIT/ML VIAL SQ SCH ×4 (07:03→20:47)
[2022-09-01] MEDS: METOPROLOL TARTRATE 25 MG TAB PO SCH ×2 (08:39→20:18)
[2022-09-01] MEDS ORDERED: POTASSIUM CHLORIDE ER 20 MEQ TAB.ER PO STA (08:40)
[2022-09-01] MEDS: SPIRONOLACTONE 25 MG TAB PO SCH (08:45)
[2022-09-01] MEDS: CHOLECALCIFEROL 25 MCG (1000 IU) TABLET PO SCH (08:45)
[2022-09-01] MEDS: ASPIRIN 81 MG PO SCH (08:45)
[2022-09-01] MEDS: lisinopriL 5 MG TAB PO SCH ×2 (08:45→20:18)
--- NOTE | 2022-09-01 09:57 | PN ---
PROGRESS NOTE SUBJECTIVE: Mr. Zabala presented with acute anterior VA this morning, underwent stenting of LAD by Dr. Mabry. He is doing well. He is in sinus rhythm, hemodynamically stable, resting comfortably. OBJECTIVE: VITAL SIGNS: Blood pressure 140/70, pulse rate is 70 per minute. NECK: No JVD. CARDIOVASCULAR: S1, S2 heard normally. Short systolic murmur at left sternal border. LUNGS: Clear. ABDOMEN: Unchanged. EXTREMITIES: Lower extremities unchanged. PLAN: Plan is to continue current medical regimen including dual-antiplatelet therapy and gradual increase in activity. The patient is doing well post PCI of LAD. MMODL / IJN: [id number] /
[2022-09-01 10:14] LABS: LDL Cholesterol,Calculated 85.1 mg/dL (0.0-131.0)
[2022-09-01] MEDS ORDERED: LORazepam 2 MG/ML INJ IV PRN ×3 (11:59)
[2022-09-01 12:00] LABS: Glucose,Whole Blood 99 mg/dL (70-110)
--- NOTE | 2022-09-01 12:30 | CA ---
Transthoracic Echo Report Name: Lexa Zabala Age: 67 Gender: M : 1955 Exam Date: 09/01/2022 08:43 Exam Location: [place] [facility] Ht (in): 73 Wt (lb): 240 Ordering Physician: Sophy Martínez MD ([id number]) Attending/Referring Phys: Rn Iv Therapy Tg Castellon RDCS Procedure CPT: Indications: ID Cardiac Hx: Technical Quality: Poor Contrast 1: Lumason Total Dose (mL): 4 Contrast 2: Total Dose (mL): MEASUREMENTS (Male / Female) Normal Values 2D ECHO LV Diastolic Diameter PLAX 4.7 cm 4.2 - 5.9 / 3.9 - 5.3 cm LV Systolic Diameter PLAX 2.3 cm IVS Diastolic Thickness 1.6 cm 0.6 - 1.0 / 0.6 - 0.9 cm LVPW Diastolic Thickness 1.5 cm 0.6 - 1.0 / 0.6 - 0.9 cm LV Relative Wall Thickness 0.7 RV Internal Dim ED PLAX 3.4 cm LV Diastolic Volume MOD BP 122.9 cm??? 67 - 155 / 56 - 104 cm??? LV Systolic Volume MOD BP 51.5 cm??? 22 - 58 / 19 - 49 cm??? LV Ejection Fraction MOD BP 58.1 % >= 55 % LV Cardiac Index MOD BP 1909.5 cm???/min???m??? LV Diastolic Volume MOD 4C 117.7 cm??? LV Systolic Volume MOD 4C 46.7 cm??? LV Ejection Fraction MOD 4C 60.4 % LV Cardiac Index MOD 4C 1897.6 cm???/min???m??? LV Diastolic Length 4C 8.5 cm LV Systolic Length 4C 6.9 cm LV Diastolic Volume MOD 2C 126.9 cm??? LV Systolic Volume MOD 2C 57.1 cm??? LV Ejection Fraction MOD 2C 55.0 % LV Cardiac Index MOD 2C 1864.7 cm???/min???m??? LV Diastolic Length 2C 8.3 cm LV Systolic Length 2C 6.7 cm LA Volume 41.0 cm??? 18 - 58 / 22 - 52 cm??? M-MODE Aortic Root Diameter MM 3.7 cm LA Systolic Diameter MM 3.5 cm LA Ao Ratio MM 0.9 DOPPLER AV Peak Velocity 242.8 cm/s AV Peak Gradient 23.6 mmHg AV Mean Velocity 175.5 cm/s AV Mean Gradient 13.8 mmHg AV Velocity Time Integral 50.4 cm LVOT Peak Velocity 104.1 cm/s LVOT Peak Gradient 4.3 mmHg LVOT Velocity Time Integral 19.9 cm MV Area PHT 5.4 cm??? Mitral E Point Velocity 116.3 cm/s Mitral A Point Velocity 0.4 cm/s Mitral E to A Ratio 331.3 MV Deceleration Time 140.4 ms MV E' Velocity 11.6 cm/s Mitral E to MV E' Ratio 10.0 TR Peak Velocity 181.5 cm/s TR Peak Gradient 13.2 mmHg Right Ventricular Systolic Press 18.2 mmHg FINDINGS Left Ventricle Moderately increased left ventricular wall thickness. Left ventricular cavity size normal. [place] is hypokinetic, Anterior wall hypokinesis and apical septal wall hypokinetic. Decreased systolic function. Left ventricular ejection fraction is estimated at 40-45 %. Right Ventricle Normal right ventricular size. Right ventricular systolic pressure within normal limits. Right Atrium Normal right atrial size. Left Atrium Normal left atrial size. Mitral Valve Structurally normal mitral valve. Mild mitral regurgitation. Aortic Valve Trileaflet aortic valve. Mild aortic stenosis with a peak gradient of 24 mmHg and a mean gradient of 14 mmHg. Tricuspid Valve Structurally normal tricuspid valve. Mild tricuspid regurgitation. Pulmonic Valve Structurally normal pulmonic valve. Pericardium No pericardial effusion. Aorta Normal size aortic root and proximal ascending aorta. CONCLUSIONS 1. Moderately impaired left ventricular systolic function with segmental wall motion abnormality consistent with CAD 2. Mild mitral and tricuspid regurgitation 3. Mild aortic stenosis Previewed by: Dr. Sophy Martínez MD (Electronically Signed) Final Date: 01 September 2022 12:30
[2022-09-01 12:49] VITALS: BMI 31.6
[2022-09-01] MEDS: THIAMINE 100 MG TAB PO SCH (14:48)
[2022-09-01] MEDS: NICOTINE 21MG/24HR PATCH TRANSDERM SCH (14:48)
[2022-09-01 17:00] LABS: Glucose,Whole Blood 107 mg/dL (70-110)
[2022-09-01] MEDS ORDERED: lisinopriL 5 MG TAB PO STA (17:24)
--- NOTE | 2022-09-01 19:41 | P.HPIM ---
History of Present Illness H&P Date: 09/01/22 Chief Complaint: chest pain This is a 67-year-old gentleman with past medical history significant for obesity, hypertension, hyperlipidemia, nicotine and alcohol abuse presented to the ER with complaints of recurrent midsternal, crushing pressure chest pain-, evidence of anterior wall ME, while in the ER developed a brief pulseless V. fib, required one shock with ROSC obtained, transferred to cardiac cath. Lab- reporting subtotally occluded proximal LAD, no evidence of obstructive disease in the RCA and left circumflex, successful stenting of the proximal LAD, right dominance. Tolerated procedure well. Telemetry sinus rhythm, maintaining O2 sats in the 90s on 2 L currently. Echo pending. Denies any further chest pain, palpitations or increased shortness of breath. Review of Systems ROS Statement: Those systems with pertinent positive or pertinent negative responses have been documented in the HPI. ROS Other: All systems not noted in ROS Statement are negative. Past Medical History Past Medical History: Diabetes Mellitus, Sleep Apnea/CPAP/BIPAP Additional Past Medical History / Comment(s): GOUT, SLEEP APNEA-NO MACHINE, ENVIRONMENTAL ALLERGIES. History of Any Multi-Drug Resistant Organisms: None Reported Past Surgical History: Appendectomy Additional Past Surgical History / Comment(s): CYST REMOVED ON ABDOMEN, NASAL SURGERY, COLONOSCOPY. Past Anesthesia/Blood Transfusion Reactions: No Reported Reaction Past Psychological History: No Psychological Hx Reported Smoking Status: Never smoker Past Alcohol Use History: None Reported Past Drug Use History: None Reported - Past Family History Brother(s) Family Medical History: Cancer Additional Family Medical History / Comment(s): prostate Father Family Medical History: Cancer Additional Family Medical History / Comment(s): PROSTATE CANCER. Medications and Allergies Home Medications Medication Instructions Recorded Confirmed Type Atorvastatin [Lipitor] 20 mg PO HS 07/01/21 09/01/22 History Minocycline HCl [Minocin] 100 mg PO DAILY 07/01/21 09/01/22 History Empagliflozin/Metformin HCl 2 tab PO DAILY 09/01/22 09/01/22 History [Synjardy 12.5-1,000 mg Tablet] lisinopriL [Prinivil] 20 mg PO DAILY 09/01/22 09/01/22 History Allergies Allergy/AdvReac Type Severity Reaction Status Date / Time No Known Allergies Allergy Verified 09/01/22 09:10 Physical Exam Vitals: Vital Signs Temp Pulse Pulse Resp BP Pulse Ox 09/01/22 19:00 85 3 L 158/105 96 09/01/22 18:00 85 20 180/115 94 L 09/01/22 17:00 83 15 165/111 95 09/01/22 16:00 98.4 F 93 8 L 174/100 95 09/01/22 15:00 88 0 L 171/108 95 09/01/22 14:00 90 7 L 150/87 95 09/01/22 13:00 93 6 L 126/104 96 09/01/22 12:00 98.4 F 84 12 173/97 96 09/01/22 11:00 76 13 166/110 97 09/01/22 10:00 79 18 152/105 95 09/01/22 09:00 84 12 148/89 97 09/01/22 08:00 98.3 F 86 11 L 165/102 96 09/01/22 07:00 87 15 156/96 96 09/01/22 06:00 87 8 L 161/103 99 09/01/22 05:00 87 20 155/100 95 09/01/22 04:28 98.2 F 80 22 96 09/01/22 04:00 82 20 09/01/22 03:02 79 20 174/116 92 L 09/01/22 02:56 82 09/01/22 02:52 97.7 F 109 H 20 151/102 95 Intake and Output 09/01/22 09/01/22 09/01/22 06:59 14:59 22:59 Intake Total 75 1090 0 Output Total 550 0 800 Balance -475 1090 -800 Intake: IV 75 Intake, IV Titration 540 Amount Sodium Chloride 0.9% 1, 540 000 ml In Empty Bag 1 bag @ 1 ML/KG/HR 108.862 mls /hr IV .[id number] [facility] Rx#: [id number] Oral 550 0 Output: Urine 550 0 800 Other: Voiding Method Urinal Weight 108.862 kg 108.862 kg PHYSICAL EXAM: VITAL SIGNS: [As above] GENERAL: Sitting up in bed, no acute distress HEENT: Conjunctivae normal. eyes normal. NECK: Supple, No JVD. No thyroid enlargement. No LNs CARDIOVASCULAR: S1, S2 regular. systolic murmur RESPIRATION: Breath sounds diminished in the bases. No rhonchi or crackles. No bronchial breathing. ABDOMEN: Soft, nontender . No guarding. no masses palpable. No ascites, No hepatosplenomegaly.Bowel sounds heard. LEGS: No edema. no swelling PSYCHIATRY: Alert and oriented X3, mood and affect normal. NERVOUS SYSTEM: Cranial N 2-12 grossly normal. No focal deficits. Strength an d sensation grossly intact.. Skin: Warm and dry, no rash Results CBC & Chem 7: 09/01/22 03:02 09/01/22 03:02 Labs: Abnormal Lab Results - Last 24 Hours (Table) 09/01/22 09/01/22 09/01/22 Range/Units 02:57 03:02 03:02 APTT 53.3 H (22.0-30.0) sec Carbon Dioxide 20 L (22-30) mmol/L Glucose 194 H (74-99) mg/dL POC Glucose (mg/dL) 183 H (70-110) mg/dL Hemoglobin A1c (<=6.0) % Troponin I (0.000-0.034) ng/mL Triglycerides (0.00-149.00) mg/dL VLDL Cholesterol, Calc (5.00-40.00) mg/dL 09/01/22 09/01/22 09/01/22 Range/Units 03:02 03:02 03:02 APTT (22.0-30.0) sec Carbon Dioxide (22-30) mmol/L Glucose (74-99) mg/dL POC Glucose (mg/dL) (70-110) mg/dL Hemoglobin A1c 7.2 H (<=6.0) % Troponin I 0.113 H* (0.000-0.034) ng/mL Triglycerides 277.00 H (0.00-149.00) mg/dL VLDL Cholesterol, Calc 55.40 H (5.00-40.00) mg/dL 09/01/22 09/01/22 09/01/22 Range/Units 04:30 06:15 06:39 APTT (22.0-30.0) sec Carbon Dioxide (22-30) mmol/L Glucose (74-99) mg/dL POC Glucose (mg/dL) 166 H 140 H (70-110) mg/dL Hemoglobin A1c (<=6.0) % Troponin I 3.070 H* (0.000-0.034) ng/mL Triglycerides (0.00-149.00) mg/dL VLDL Cholesterol, Calc (5.00-40.00) mg/dL 09/01/22 09/01/22 Range/Units 08:39 14:24 APTT (22.0-30.0) sec Carbon Dioxide (22-30) mmol/L Glucose (74-99) mg/dL POC Glucose (mg/dL) (70-110) mg/dL Hemoglobin A1c (<=6.0) % Troponin I 7.900 H* 13.400 H* (0.000-0.034) ng/mL Triglycerides (0.00-149.00) mg/dL VLDL Cholesterol, Calc (5.00-40.00) mg/dL Thrombosis Risk Factor Assmnt - Choose All That Apply Any of the Below Risk Factors Present?: Yes Each Factor Represents 1 point: Acute ME, Obesity (BMI >25) Other Risk Factors: Yes Each Risk Factor Represents 2 Points: Age 61-74 years Other congenital or acquired thrombophilia - If yes, enter type in comment: No Thrombosis Risk Factor Assessment Total Risk Factor Score: 4 Thrombosis Risk Factor Assessment Level: Moderate Risk Assessment and Plan Assessment: Acute STEMI, status post stenting of proximal LAD Pulseless V. tach, required only one defibrillation Acute hypoxic respiratory failure secondary to the above Pulmonary edema Atelectasis Diabetes mellitus type 2, A1c 7.2 Hypertension Hyperlipidemia Obesity, BMI 32 Alcohol abuse, though patient denies, family reports continues to consume significant amounts of hard liquor daily Nicotine abuse, though patient denies ,family reports patient continues to 2 tobacco daily Plan: Continue on current medication regime ,monitoring and symptomatic treatment.ICU management as per cloud administrator. WA protocol, nicotine patch ordered.HERMILA pending. Continue on beta thania, FELA inhibitor, brilenta, Aldactone. The impression and plan of care has been dictated as directed. : I performed a history and examination of this patient, discussed the same with the dictator. I agree with the dictator's note ,documented as a scribe. Any additional findings or plans will be noted.
[2022-09-01] MEDS: ATORVASTATIN 80 MG TAB PO SCH (20:18)
[2022-09-01] MEDS: TICAGRELOR 90 MG TAB PO SCH (20:19)
[2022-09-01 20:30] LABS: Glucose,Whole Blood 123 mg/dL (70-110)
[2022-09-01] MEDS ORDERED: ATORVASTATIN 20 MG TAB PO SCH (21:00)
[2022-09-02 04:53] LABS: African American GFR (CKD) >90 (>60 ml/min/1.73 sqM); Anion Gap 10 mmol/L; Blood Urea Nitrogen 13 mg/dL (9-20); Calcium 9.1 mg/dL (8.4-10.2); Carbon Dioxide 23 mmol/L (22-30); Chloride 101 mmol/L (98-107); Glucose 145 mg/dL (74-99); Non-African American GFR(CKD) >90 (>60 ml/min/1.73 sqM); Sodium 134 mmol/L (137-145)
[2022-09-02 06:41] LABS: Glucose,Whole Blood 150 mg/dL (70-110)
[2022-09-02] MEDS: INSULIN ASPART (NovoLOG) 100 UNIT/ML VIAL SQ SCH ×4 (06:42→21:16)
[2022-09-02] MEDS: THIAMINE 100 MG TAB PO SCH (08:24)
[2022-09-02] MEDS: METOPROLOL TARTRATE 25 MG TAB PO SCH (08:24)
[2022-09-02] MEDS: SPIRONOLACTONE 25 MG TAB PO SCH (08:25)
[2022-09-02] MEDS: TICAGRELOR 90 MG TAB PO SCH ×2 (08:25→20:33)
[2022-09-02] MEDS: ASPIRIN 81 MG PO SCH (08:25)
[2022-09-02] MEDS: CHOLECALCIFEROL 25 MCG (1000 IU) TABLET PO SCH (08:25)
[2022-09-02] MEDS: lisinopriL 5 MG TAB PO SCH (08:25)
[2022-09-02] MEDS: NICOTINE 21MG/24HR PATCH TRANSDERM SCH (08:25)
[2022-09-02 11:09] LABS: Glucose,Whole Blood 203 mg/dL (70-110)
--- NOTE | 2022-09-02 13:48 | PN ---
PROGRESS NOTE SUBJECTIVE: Mr. Zabala had an anterior LA yesterday, underwent stenting about 36 hours ago. He is doing well. Ejection fraction is 40% to 45%. His radial site is clean and dry. OBJECTIVE: VITAL SIGNS: Stable. HEART: S1 and S2 heard normally. Short systolic murmur at the base. LUNGS: Clear. ABDOMEN: Unchanged. LOWER EXTREMITIES: Unchanged. PLAN: To discharge the patient tomorrow, increase activity, move him to telemetry today. MMODL / IJN: [id number] /
[2022-09-02] MEDS: METOPROLOL TARTRATE 50 MG TAB PO SCH (20:33)
[2022-09-02] MEDS: lisinopriL 10 MG TAB PO SCH (20:33)
[2022-09-02] MEDS: ATORVASTATIN 80 MG TAB PO SCH (20:33)
[2022-09-02 20:40] LABS: Glucose,Whole Blood 154 mg/dL (70-110)
[2022-09-03 06:19] LABS: Glucose,Whole Blood 145 mg/dL (70-110)
[2022-09-03] MEDS: INSULIN ASPART (NovoLOG) 100 UNIT/ML VIAL SQ SCH ×4 (06:55→21:11)
[2022-09-03] MEDS: metFORMIN 500 MG TAB PO SCH ×2 (07:03→17:10)
[2022-09-03 07:59] LABS: African American GFR (CKD) >90 (>60 ml/min/1.73 sqM); Anion Gap 9 mmol/L; Blood Urea Nitrogen 11 mg/dL (9-20); Calcium 8.8 mg/dL (8.4-10.2); Carbon Dioxide 24 mmol/L (22-30); Chloride 103 mmol/L (98-107); Glucose 157 mg/dL (74-99); Non-African American GFR(CKD) >90 (>60 ml/min/1.73 sqM); Potassium 4.3 mmol/L (3.5-5.1); Sodium 136 mmol/L (137-145)
[2022-09-03] MEDS: METOPROLOL TARTRATE 50 MG TAB PO SCH (08:06)
[2022-09-03] MEDS: ASPIRIN 81 MG PO SCH (10:11)
[2022-09-03] MEDS: lisinopriL 10 MG TAB PO SCH ×2 (10:12→21:13)
[2022-09-03] MEDS: NICOTINE 21MG/24HR PATCH TRANSDERM SCH (10:12)
[2022-09-03] MEDS: CHOLECALCIFEROL 25 MCG (1000 IU) TABLET PO SCH (10:12)
[2022-09-03] MEDS: SPIRONOLACTONE 25 MG TAB PO SCH (10:12)
[2022-09-03] MEDS: THIAMINE 100 MG TAB PO SCH (10:12)
[2022-09-03] MEDS: TICAGRELOR 90 MG TAB PO SCH ×2 (10:12→21:13)
[2022-09-03 11:48] LABS: Glucose,Whole Blood 135 mg/dL (70-110)
--- NOTE | 2022-09-03 13:21 | P.PN ---
Subjective HISTORY OF PRESENT ILLNESS: The patient is a 67-year-old male with known history of hyperlipidemia, no history of smoking who presented with an acute onset chest discomfort and presented with evidence of anterior wall myocardial infarction. The patient had mild discomfort earlier during the day that resolved but subsequently had discomfort that woke him up from sleep and presented to the ER. In the emergency room he had an episode of ventricular tachycardia requiring cardioversion. He has no prior cardiac history, he is usually active physically without any difficulties. He denies any peripheral edema, PND or orthopnea. He denies any dizziness, palpitations or syncope. Medications: Metformin 500 mg twice a day, Lipitor 20 made him daily, vitamin C 09/03/2022 Patient examined this point the bedside. Patient is status post cardiac catheterization revealing subtotally occluded proximal LAD, no evidence of obstructive disease in the RCA and left circumflex, right dominant system. Shantelle ent underwent stenting of the proximal LAD. EKG reviewed this morning by Dr. Kauffman revealed second degree heart block. The patient's beta thania has been discontinued. Telemetry reviewed now revealing sinus mechanism. Patient denies chest pain or pressure. He denies shortness of breath. PHYSICAL EXAM: VITAL SIGNS: Reviewed. GENERAL: Well-developed in no acute distress. NECK: Supple. No JVD or thyromegaly LUNGS: Respirations even and unlabored. Lungs essentially clear to auscultation bilaterally. HEART: Regular rate and rhythm. S1 and S2 heard. EXTREMITIES: Normal range of motion. No clubbing or cyanosis. Peripheral pulses intact. No lower extremity edema ASSESSMENT: Acute anterior wall myocardial infarction, status post stenting of proximal LAD Second degree heart block, resolved Hypertension Hyperlipidemia Diabetes Ventricular tachycardia on presentation, requiring cardioversion Alcohol and nicotine abuse, per patient's family, although patient denies PLAN: Continue to hold beta thania for today. Will possibly reinitiate tomorrow at a smaller dose. Continue additional cardiac medications Continue telemetry monitoring Continue to monitor patient for an additional 24 hours Further recommendations pending patient's course Nurse practitioner note has been reviewed by physician. Signing provider agrees with the documented findings, assessment, and plan of care. Objective - Vital Signs Vital signs: Vital Signs Temp 98.4 F 09/03/22 12:00 Pulse 71 09/03/22 12:00 Resp 18 09/03/22 12:00 BP 131/86 09/03/22 12:00 Pulse Ox 99 09/03/22 12:00 FiO2 21 09/03/22 08:19 Intake & Output 09/02/22 09/03/22 09/03/22 18:59 06:59 18:59 Intake Total 1025 180 Output Total 2049 0 Balance -1025 0 180 Intake: Oral 1025 180 Output: Urine 2049 0 Other: Voiding Method Toilet # Voids 1 - Labs CBC & Chem 7: 09/01/22 03:02 09/03/22 07:04 Labs: Abnormal Lab Results - Last 24 Hours (Table) 09/02/22 09/03/22 09/03/22 Range/Units 20:38 06:18 07:04 Sodium 136 L (137-145) mmol/L Glucose 157 H (74-99) mg/dL POC Glucose (mg/dL) 154 H 145 H (70-110) mg/dL 09/03/22 Range/Units 11:46 Sodium (137-145) mmol/L Glucose (74-99) mg/dL POC Glucose (mg/dL) 135 H (70-110) mg/dL
[2022-09-03 16:43] LABS: Glucose,Whole Blood 179 mg/dL (70-110)
--- NOTE | 2022-09-03 19:13 | P.PN ---
Subjective Progress Note Date: 09/03/22 H&P Date: 09/01/22 Chief Complaint: chest pain This is a 67-year-old gentleman with past medical history significant for obesity, hypertension, hyperlipidemia, nicotine and alcohol abuse presented to the ER with complaints of recurrent midsternal, crushing pressure chest pain-, evidence of anterior wall NM, while in the ER developed a brief pulseless V. f ib, required one shock with ROSC obtained, transferred to cardiac cath. Lab- reporting subtotally occluded proximal LAD, no evidence of obstructive disease in the RCA and left circumflex, successful stenting of the proximal LAD, right dominance. Tolerated procedure well. Telemetry sinus rhythm, maintaining O2 sats in the 90s on 2 L currently. Echo pending. Denies any further chest pain, palpitations or increased shortness of breath. 09/03/2022 EKG per cardiology review reporting second-degree heart block, beta thania discontinued. Asymptomatic, denies chest pain, palpitations or shortn ess of breath. Telemetry currently reporting sinus. Vital signs stable Objective - Vital Signs Vital signs: Vital Signs Temp 97.9 F 09/03/22 16:00 Pulse 73 09/03/22 16:00 Resp 16 09/03/22 16:00 BP 121/70 09/03/22 16:00 Pulse Ox 100 09/03/22 16:00 FiO2 21 09/03/22 08:19 Intake & Output 09/03/22 09/03/22 09/04/22 06:59 18:59 06:59 Intake Total 600 Output Total 0 Balance 0 600 Intake: Oral 600 Output: Urine 0 Other: Voiding Method Toilet # Voids 1 - Exam PHYSICAL EXAM: VITAL SIGNS: [As above] GENERAL: Alert and oriented 3, Sitting up in bed, no acute distress HEENT: Normocephalic, Conjunctivae normal. eyes normal. NECK: Supple, No JVD. CARDIOVASCULAR: S1, S2 regular. systolic murmur RESPIRATION: Nonlabored, equal air entry, Breath sounds diminished in the bases. No rhonchi or crackles. ABDOMEN: Soft, nontender . No guarding. no masses palpable.Bowel sounds heard. LEGS: No edema. no swelling. NERVOUS SYSTEM: Cranial N 2-12 grossly normal. No focal deficits. Strength and sensation grossly intact. Skin: Warm and dry, no rash - Labs CBC & Chem 7: 09/01/22 03:02 09/03/22 07:04 Labs: Abnormal Lab Results - Last 24 Hours (Table) 09/02/22 09/03/22 09/03/22 Range/Units 20:38 06:18 07:04 Sodium 136 L (137-145) mmol/L Glucose 157 H (74-99) mg/dL POC Glucose (mg/dL) 154 H 145 H (70-110) mg/dL 09/03/22 09/03/22 Range/Units 11:46 16:41 Sodium (137-145) mmol/L Glucose (74-99) mg/dL POC Glucose (mg/dL) 135 H 179 H (70-110) mg/dL Assessment and Plan Assessment: Acute STEMI, status post stenting of proximal LAD Pulseless V. tach, required only one defibrillation Second-degree heart block, beta thania held, currently sinus Acute hypoxic respiratory failure secondary to the above, resolved Pulmonary edema Atelectasis Diabetes mellitus type 2, A1c 7.2 Hypertension Hyperlipidemia Obesity, BMI 32 Alcohol abuse, though patient denies, family reports continues to consume significant amounts of hard liquor daily Nicotine abuse, though patient denies ,family reports patient continues to chew tobacco daily Plan: Continue on current medication regime ,monitoring and symptomatic treatment. Maintain CIWA protocol, nicotine patch ordered. Beta thania on hold. The impression and plan of care has been dictated as directed. : I performed a history and examination of this patient, discussed the same with the dictator. I agree with the dictator's note ,documented as a scribe. Any additional findings or plans will be noted.
[2022-09-03 20:15] LABS: Glucose,Whole Blood 151 mg/dL (70-110)
[2022-09-03] MEDS: ATORVASTATIN 80 MG TAB PO SCH (21:13)
[2022-09-04 06:08] LABS: Glucose,Whole Blood 140 mg/dL (70-110)
[2022-09-04] MEDS: INSULIN ASPART (NovoLOG) 100 UNIT/ML VIAL SQ SCH ×2 (06:10→13:05)
[2022-09-04] MEDS: metFORMIN 500 MG TAB PO SCH (06:25)
[2022-09-04] MEDS: NICOTINE 21MG/24HR PATCH TRANSDERM SCH (09:25)
[2022-09-04] MEDS: TICAGRELOR 90 MG TAB PO SCH (09:25)
[2022-09-04] MEDS: ASPIRIN 81 MG PO SCH (09:26)
[2022-09-04] MEDS: SPIRONOLACTONE 25 MG TAB PO SCH (09:26)
[2022-09-04] MEDS: THIAMINE 100 MG TAB PO SCH (09:26)
[2022-09-04] MEDS: CHOLECALCIFEROL 25 MCG (1000 IU) TABLET PO SCH (09:26)
[2022-09-04] MEDS: lisinopriL 10 MG TAB PO SCH (09:26)
[2022-09-04 11:19] VITALS: RESP 16; TEMP 97.8
[2022-09-04 11:33] LABS: Glucose,Whole Blood 174 mg/dL (70-110)
[2022-09-04 12:17] VITALS: BP 124/77; PULSE 77
[2022-09-04] MEDS ORDERED: METOPROLOL SUCCINATE (ER) 25 MG TAB.ER.24H PO SCH (12:45)
--- NOTE | 2022-09-04 13:10 | P.PN ---
Subjective Progress Note Date: 09/04/22 HISTORY OF PRESENT ILLNESS: The patient is a 67-year-old male with known history of hyperlipidemia, no history of smoking who presented with an acute onset chest discomfort and pres ented with evidence of anterior wall myocardial infarction. The patient had mild discomfort earlier during the day that resolved but subsequently had discomfort that woke him up from sleep and presented to the ER. In the emergency room he had an episode of ventricular tachycardia requiring cardiov ersion. He has no prior cardiac history, he is usually active physically without any difficulties. He denies any peripheral edema, PND or orthopnea. He denies any dizziness, palpitations or syncope. Medications: Metformin 500 mg twice a day, Lipitor 20 made him daily, vitamin C 09/03/2022 Patient examined this point the bedside. Patient is status post cardiac catheterization revealing subtotally occluded proximal LAD, no evidence of obstructive disease in the RCA and left circumflex, right dominant system. Patient underwent stenting of the proximal LAD. EKG reviewed this morning by Dr. Kauffman revealed second degree heart block. The patient's beta thania has been discontinued. Telemetry reviewed now revealing sinus mechanism. Patient denies chest pain or pressure. He denies shortness of breath. 09/04/2022 Patient examined this morning at the bedside. Patient denies chest pain or pressure. He denies shortness of breath. Vital signs are stable. Telemetry reveals sinus mechanism with a heart rate in the 70s. PHYSICAL EXAM: VITAL SIGNS: Reviewed. GENERAL: Well-developed in no acute distress. NECK: Supple. No JVD or thyromegaly LUNGS: Respirations even and unlabored. Lungs essentially clear to auscultation bilaterally. HEART: Regular rate and rhythm. S1 and S2 heard. EXTREMITIES: Normal range of motion. No clubbing or cyanosis. Peripheral pulses intact. No lower extremity edema ASSESSMENT: Acute anterior wall myocardial infarction, status post stenting of proximal LAD Second degree heart block, resolved Hypertension Hyperlipidemia Diabetes Ventricular tachycardia on presentation, requiring cardioversion Alcohol and nicotine abuse, per patient's family, although patient denies PLAN: Continue current cardiac medications Reinitiate beta thania at a small dose of 25 mg daily Patient may be discharged home today from a cardiac standpoint and follow up on an outpatient basis Nurse practitioner note has been reviewed by physician. Signing provider agrees with the documented findings, assessment, and plan of care. Objective - Vital Signs Vital signs: Vital Signs Temp 97.8 F 09/04/22 08:00 Pulse 77 09/04/22 12:00 Resp 16 09/04/22 08:00 BP 124/77 09/04/22 12:00 Pulse Ox 96 09/04/22 12:00 FiO2 21 09/03/22 08:19 Intake & Output 09/03/22 09/04/22 09/04/22 18:59 06:59 18:59 Intake Total 600 540 240 Balance 600 540 240 Intake: Oral 600 540 240 Other: Voiding Method Toilet Toilet # Voids 1 - Labs CBC & Chem 7: 09/01/22 03:02 09/03/22 07:04 Labs: Abnormal Lab Results - Last 24 Hours (Table) 09/03/22 09/03/22 09/04/22 Range/Units 16:41 20:13 06:04 POC Glucose (mg/dL) 179 H 151 H 140 H (70-110) mg/dL 09/04/22 Range/Units 11:32 POC Glucose (mg/dL) 174 H (70-110) mg/dL
--- NOTE | 2022-09-04 13:20 | P.DS ---
Providers Date of admission: 09/01/22 03:24 Expected date of discharge: 09/04/22 Attending physician: Umberto Flor Consults: 09/01/22 03:20 Consult Physician Stat Consulting Provider: Sophy Martínez Consult Reason/Comments: STEMI Do you want consulting provider notified?: Already Contacted 09/01/22 03:24 Consult Physician Stat Consulting Provider: Lexa Bush Consult Reason/Comments: STEMI Do you want consulting provider notified?: Already Contacted 09/01/22 04:20 Consult Physician Routine Consulting Provider: [facility] Consult Reason/Comments: Post Interventional Patient Do you want consulting provider notified?: Already Contacted Primary care physician: Jose Angel Elliott Assessment: General: [Patient awake, alert and oriented times 3. Patient in no acute distress.] HEENT: [PERRL. EOMI. No pharyngeal erythema or exudate.] Neck: [No adenopathy.] Cardiac: [Heart regular in rate and rhythm. No S3. No S4. No clicks, rubs. No murmur.] Lungs: [Clear to auscultation bilaterally.] Abdomen: [No mass. No organomegaly. Bowel sounds presnt and normoactive in all 4 quadrants.] Extremes: [No edema no cyanosis no claudication normal pulses] : Duong male genitalia Musculoskeletal: [No joint erythema, edema or tenderness.] Skin: [No rash.] Neurologic: [No lateralizing deficits. CN II - XII grossly intact.] Lymphatic: [No adenopathy.] presented with chest pain to the emergency room been into asystole pulseless had to be defibrillated taken to the catheter lab had angioplasty with stent placed Patient Condition at Discharge: Serious Plan - Discharge Summary Discharge Rx Participant: No New Discharge Prescriptions: No Action Minocycline HCl [Minocin] 100 mg PO DAILY Atorvastatin [Lipitor] 20 mg PO HS lisinopriL [Prinivil] 20 mg PO DAILY Empagliflozin/Metformin HCl [Synjardy 12.5-1,000 mg Tablet] 2 tab PO DAILY Discharge Medication List Minocycline HCl [Minocin] 100 mg PO DAILY 07/01/21 [History] Empagliflozin/Metformin HCl [Synjardy 12.5-1,000 mg Tablet] 2 tab PO DAILY 09/01/22 [History] Aspirin 81 mg PO DAILY #90 tab 09/04/22 [Rx] Atorvastatin [Lipitor] 80 mg PO HS #90 tab 09/04/22 [Rx] Metoprolol Succinate (ER) [Toprol XL] 25 mg PO DAILY #90 tab 09/04/22 [Rx] Nitroglycerin Sl Tabs [Nitrostat] 0.4 mg SUBLINGUAL Q5M PRN #100 tab 09/04/22 [Rx] Spironolactone [Aldactone] 25 mg PO DAILY #90 tab 09/04/22 [Rx] Ticagrelor [Brilinta] 90 mg PO BID #60 tab 09/04/22 [Rx] lisinopriL [Zestril] 10 mg PO BID #180 tab 09/04/22 [Rx] Follow up Appointment(s)/Referral(s): Jose Angel Elliott MD [Primary Care Provider] - 3 Days
== END 2022-09-04 14:52 | disposition home or self-care (01) | DRG 246 ==
LOC: EC 02:51 → 2SICU 03:24 → 3SCARD 09-02 22:10
PROVIDERS: ADMIT Family Medicine; ATTEND Family Medicine
PROC: 4A023N7 Measurement of Cardiac Sampling and Pressure, Left Heart, Percutaneous Approach (ICD-10-PCS; 2022-09-01)
PROC: B2111ZZ Fluoroscopy of Multiple Coronary Arteries using Low Osmolar Contrast (ICD-10-PCS; 2022-09-01)
PROC: 027034Z Dilation of Coronary Artery, One Artery with Drug-eluting Intraluminal Device, Percutaneous Approach (ICD-10-PCS; principal; 2022-09-01 03:09)
PROC: 5A2204Z Restoration of Cardiac Rhythm, Single (ICD-10-PCS; 2022-09-01 03:09)
PROC: B240ZZ3 Ultrasonography of Single Coronary Artery, Intravascular (ICD-10-PCS; 2022-09-01 03:09)
DX: I21.09 ST elevation (STEMI) myocardial infarction involving other coronary artery of anterior wall (principal); I49.01 Ventricular fibrillation; J96.01 Acute respiratory failure with hypoxia; I47.20 Ventricular tachycardia, unspecified; J81.1 Chronic pulmonary edema; E78.5 Hyperlipidemia, unspecified; G47.30 Sleep apnea, unspecified; E66.9 Obesity, unspecified; I25.10 Atherosclerotic heart disease of native coronary artery without angina pectoris; Z68.32 Body mass index [BMI] 32.0-32.9, adult; F17.220 Nicotine dependence, chewing tobacco, uncomplicated; M10.9 Gout, unspecified; I10 Essential (primary) hypertension; I44.1 Atrioventricular block, second degree; Z79.84 Long term (current) use of oral hypoglycemic drugs; Z79.899 Other long term (current) drug therapy
CPT/HCPCS: 36415; 71045; 80048; 80053; 80061; 83036; 84484; 85025; 85610; 85730; 92978; 93005; 93306; 93458; 96372; 99291